=== PATIENT | male | born 1985 | race Caucasian/White ===

== ENCOUNTER → 2019-07-01 | Outpatient (CLI) | payer BC ==
[2019-07-01 12:03] LABS: INR 2.47; PROTHROMBIN TIME 26.6 SECONDS (11.8-14.0)
== END ==
LOC: M LAB 11:22
PROVIDERS: ATTEND Internal Medicine Cardiovascular Disease
DX: I48.0 Paroxysmal atrial fibrillation (principal)

== ENCOUNTER → 2019-11-17 | Outpatient (CLI) | payer BC ==
--- NOTE | 2019-11-25 11:03 | SLEEPCENT ---
DATE OF STUDY: 11/17/2019 ORDERED BY: Cullen Garces Nocturnal polysomnography was performed for evaluation of sleep physiology in this patient with a history of snoring, excessive somnolence, nonrestorative sleep and comorbidities of cardiac rhythm issues, hypertension, heart failure and valvular disease. 7 hours and 39 minutes of data were reviewed. There were 349.5 minutes of sleep identified. Sleep latency was prolonged at 57 minutes. REM latency was short at 61 minutes. Sleep architecture once established was good. There were 4 REM cycles noted. Little fragmentation was seen. The overall sleep efficiency was 77.3%. The electrocardiogram showed a regular rhythm which appeared to be sinus. Average heart rate 50 beats per minute. Rate ranged 42-60. Electroencephalogram (EEG) showed reasonably normal waveforms for awake and sleep. There were no obstructive events identified. Snoring was noted over the course of the study, but arousals from snoring were not seen. There was some minor limb activity noted in the EMG leads. No trains of events. The limb movement arousal index was only 3.8. Saturations remained 90% plus throughout the study. IMPRESSION: Normal nocturnal polysomnography with snoring.
== END ==
LOC: M SLEEP 20:00
PROVIDERS: ATTEND Physician Assistant
DX: R40.0 Somnolence